=== PATIENT | male | born 1955 | race Caucasian/White ===

== ENCOUNTER → 2023-07-22 06:26 | Day surgery (SDC) | payer OTHER, SELFPAY ==
[2023-07-22 07:17] LABS: Glucose - Point of Care 107 mg/dl (70-99)
== END ==
LOC: GI 06:26
PROVIDERS: ATTENDING PHYSICIAN Internal Medicine
DX: Z12.11 Encounter for screening for malignant neoplasm of colon (principal); K63.89 Other specified diseases of intestine; K57.30 Diverticulosis of large intestine without perforation or abscess without bleeding; K64.8 Other hemorrhoids; Z86.010 Personal history of colon polyps
CPT/HCPCS: 45385; 88305; 82962